=== PATIENT | male | born 1950 | race Caucasian/White ===

== ENCOUNTER 2022-07-10 08:13 | Outpatient (CLI) | payer BC, SELFPAY ==
--- NOTE | 2022-08-04 16:51 | WPDSLEEPSTUD ---
Sleep Study Date of Study: 07/10/22 Ordering Provider: Hoa Perez DO Interpreting Physician: Hoa Perez DO Sleep Study Type: Polysomnogram Height: 1.63 m Weight: 81.647 kg Body Mass Index: 30.9 Neck Circumference (inches): 15.5 [place]: 18 Reason for Sleep Study Concerns for REM Behavioral Disorder Sleep History The patient is a 72-year-old male with hypertension, restless legs syndrome, Type 2 Diabetes and dream enactment behavior that had a sleep study ordered for evaluation of REM Behavioral Disorder. the patient denies awakening from sleep short of breath. He denies awakening at night with heartburn, belching or cough. He frequently snores loudly enough that others complain. He denies having trouble sleeping when he has a cold. He denies waking up gasping for air throughout the night. He denies having breathing problems at night observed by himself or others. He rarely sweats excessively at night. He denies having heart palpitations or irregular heartbeats during the night. I he frequently falls asleep during the day but rarely falls asleep while driving. He denies sleep paralysis and cataplexy. He occasionally has trouble at school or work due to sleepiness. He frequently experiences vivid dreamlike scenes upon awakening or falling asleep. He denies feeling afraid of going to sleep. He rarely has nightmares and he rarely remembers his dreams. He denies having thoughts racing through his mind. He rarely feels sad or depressed. He denies having anxiety. He denies having muscular tension. He occasionally notices parts of his body jerk. He constantly kicks during the night. He frequently has crawling and aching feelings in his legs and frequently have leg pain during the night. He denies grinding his teeth during sleep and denies awakening with morning jaw pain. He is frequently bothered by pain during the day but rarely awakened by pain during the night. He constantly wakes up feeling stiff in the morning. He constantly wakes up with sore or achy muscles. He constantly wakes up with pain in the neck, spine and other joints. He goes to bed at 10:00 p.m. on both weekdays and weekends. He can fall asleep immediately. He wakes up once throughout the night to urinate and then will get a cup of coffee and read or watch that legs. He typically stays awake past that point. He wakes up at 3:00 a.m. on both weekdays and weekends. He typically gets 5 hours of sleep per night. He will stay in bed for 5-30 minutes after waking up in the morning. He currently lives with his . He does not consume any caffeinated beverages within 2 hours of bedtime. He does not engage in physical exercise before bedtime. He denies reading and watching television before falling asleep. He will take naps in the afternoon or the evening and they are refreshing. He consumes 1 cup of caffeinated beverage per day. He denies tobacco, alcohol and recreational drug use. [facility] Surgical History Surgical History Status post right partial knee replacement (~07/14/18) Family History Family History Sibling Patient's brother is in good health Diabetes mellitus Father Family history of cardiovascular disease Patient's father is , Onset Age: 97 Other Family history of elevated blood lipids Social History Social History Smoking status: Never smoker Alcohol intake: never Substance use: never Lack of Transportation: No Lack of Food: Never True Current Housing: I Have Housing Concerned About Future Housing: No Difficulty Paying Gas/Electric Bills: No Difficulty Paying for Meds: No Currently Unemployed: No Education: Master's Degree or Higher Difficulty w/ Childcare or Family Care: No Medications Home Medicati
[2022-08-04 19:59] VITALS: BMI 30.9
== END 2022-07-11 05:31 | disposition home or self-care (01) ==
LOC: ANHCSM 08:14
PROVIDERS: PCP Family Medicine; Visit Provider Family Medicine
DX: G47.52 REM sleep behavior disorder (principal); G47.33 Obstructive sleep apnea (adult) (pediatric); G25.81 Restless legs syndrome
CPT/HCPCS: 95810

== ENCOUNTER 2023-06-19 15:47 | Emergency (ER) | payer BC, SELFPAY ==
[2023-06-19] VITALS (7 sets, daily range): BP systolic 123–159; BP diastolic 68–84; PULSE 55–67; RESP 12–19; TEMP 36.8; O2SAT 98–100
--- NOTE | ~2023-06-19 | CT_ITS ---
EXAMINATION: CT brain wo con DATE: 06/19/2023 18:47 INDICATION: syncope . TECHNIQUE: Computed tomography (CT) of the head was performed without intravenous contrast. The mA wa s adjusted according to patient size. Iterative reconstruction technique was employed. The dose-lengt h product was 605.33 mGy-cm. COMPARISON: None. FINDINGS: No acute intracranial hemorrhage or extra-axial fluid collection. No hydrocephalus, mass, or herniation. No acute ischemic infarct. Unremarkable dural venous sinus attenuation. No acute osseous abnormality. Ethmoid and maxillary mucosal thickening, the remaining aerated spaces are clear. Moderate atrophy and mild chronic white matter change. Atherosclerotic intracranial calcification. IMPRESSION: No acute intracranial process. Reviewed, dictated and finalized at location K.
--- NOTE | ~2023-06-19 | XR_ITS ---
EXAMINATION: XR chest 2V DATE: 06/19/2023 16:37 INDICATION: Syncope. TECHNIQUE: Frontal and lateral views of the chest were obtained. COMPARISON: Chest single view 04/01/2007 FINDINGS: There is no pneumonia, pleural effusion, or pneumothorax. The heart size is normal. There a re old healed right rib fractures. There is mild chronic anterior wedging of multiple vertebral katarina s. IMPRESSION: 1. No acute cardiopulmonary disease. Reviewed, dictated and finalized at location A.
--- NOTE | 2023-06-19 15:53 | ED.SYNCOPE ---
HPI - Syncope General Chief Complaint: Syncope <Azucena Anderson PA-C - Last Filed: 06/21/23 09:13> Stated Complaint: syncope <Azucena Anderson PA-C - Last Filed: 06/21/23 09:13> Time Seen by Provider: 06/19/23 15:53 <Azucena Anderson PA-C - Last Filed: 06/21/23 09:13> Focused HPI: Patient reports he was [place] the [place] when he started to fell numb, warm and dizzy. This went away, but then about 30 minutes later he passed out in the restaurant. Reports no injuries. He laid his head on the table. No previous syncopal episodes. Reports some fatigue today. Denies chest pain, shortness of breath or palpitations. GENERAL: Well-appearing, well-nourished, and in no acute distress. HEAD: Normocephalic, atraumatic. CHEST: Clear to auscultation. ?No respiratory distress. HEART: Regular rate and rhythm.? NEURO: ?Alert and oriented x3. Patient screened in triage and initial orders placed.? ?Additional care and disposition to be based upon?diagnostic testing and treatment. <Azucena Anderson PA-C - Last Filed: 06/21/23 09:13> History of Present Illness HPI narrative: 72-year-old male presenting to the emergency department for evaluation after having a near syncopal than syncopal episodes today. Patient reports that he has been eating and drinking well with no recent illnesses coughs colds or fevers. Patient did have breakfast today and denies any alcohol consumption. Patient was golfing and while coughing he did have onset of some lightheaded and dizziness with some associated nausea. Patient states that the symptoms passed. Later while the patient was resting /[place] he did have a full syncopal episode and was unconscious for about 10 seconds. Patient did not fall out of his chair. Patient states that he did feel a little out of it after coming back but patient did ultimately drive home and then presented to the emergency department for evaluation. Patient denies any prior history of ME, denies any prior syncopal history and feels back to his baseline at time of examination. <Chema Jean MD - Last Filed: 06/19/23 22:08> Related Data Home Medications: Home Medications Medication Instructions Recorded Confirmed ascorbic acid (vitamin C) 500 mg 500 mg PO DAILY 08/05/19 03/25/23 capsule aspirin 81 mg chewable tablet 81 mg PO DAILY 02/18/22 03/25/23 vitamin B complex (B 1 tablet PO DAILY 06/04/22 03/25/23 Complex-Vitamin B12 tablet) <Azucena Anderson PA-C - Last Filed: 06/21/23 09:13> Allergies/Adverse Reactions: Allergies Allergy/AdvReac Type Severity Reaction Status Date / Time No Known Allergies Allergy Verified 06/19/23 15:48 <Azucena Anderson PA-C - Last Filed: 06/21/23 09:13> Review of Systems Review of Systems: All systems reviewed & are unremarkable except as noted in HPI and below <Chema Jean MD - Last Filed: 06/19/23 22:08> [facility] Surgical History Surgical History: Surgical History Status post right partial knee replacement (~07/14/18) <Azucena Anderson PA-C - Last Filed: 06/21/23 09:13> Family History Family History: Family History Sibling Patient's brother is in good health Diabetes mellitus Father Family history of cardiovascular disease Patient's father is , Onset Age: 97 Other Family history of elevated blood lipids <Azucena Anderson PA-C - Last Filed: 06/21/23 09:13> Social History Social History: Social History Smoking status: Never smoker Alcohol intake: never Substance use: never Do You Feel Safe in your Home?: Yes Lack of Transportation: No Lack of Food: Never True Current Housing: I Have Housing Concerned About Future Housing: No Difficulty Paying Gas/Electric Bills: No Difficulty P
--- NOTE | 2023-06-19 15:54 | ECG_ITS ---
Measurements Intervals [place] Rate: 62 P: 51 VA: 167 QRS: 5 QRSD: 101 T: 24 QT: 401 QTc: 408 Interpretive Statements SINUS RHYTHM INCOMPLETE RIGHT BUNDLE BRANCH BLOCK BORDERLINE ECG COMPARED TO ECG 07/01/2018 09:36:48 NO SIGNIFICANT CHANGES Electronically Signed On 06-19-2023 16:17:01 CDT by Kevin Guardado D.O.
[2023-06-19 16:12] LABS: Glucose Point of Care 163 mg/dl (65-105)
[2023-06-19 16:15] LABS: Basophils Percent Auto 0.4 % (0.2-1.2); Eosinophils Absolute Auto 0.1 K/mm3 (0-0.3); Eosinophils Percent Auto 0.7 % (0-4.4); Hemoglobin 13.9 g/dL (14.0-18.0); Immature Granulocyte Absolute 0.04 K/mm3 (0.00-0.031); Immature Granulocyte Percent A 0.4 % (0-0.5); Lymphocytes Absolute Auto 2.53 K/mm3 (0.9-3.2); Mean Corpuscular HGB Conc 34.8 g/dl (32-36); Mean Corpuscular Hemoglobin 31.9 pg (26-34); Mean Corpuscular Volume 91.7 fl (80-100); Mean Platelet Volume 9.8 fl (7.4-10.4); Monocytes Absolute Auto 0.6 K/mm3 (0.1-0.6); Monocytes Percent Auto 5.9 % (2.6-8.5); Neutrophils Absolute Auto 6.9 K/mm3 (1.3-6.7); Neutrophils Percent Auto 67.6 % (45.5-73.1); Platelet Count Result 126 k/mm3 (150-375); Red Blood Count 4.36 M/mm3 (4.6-6.20); Red Cell Distribution Width 12.3 % (11.5-14.5); White Blood Count 10.1 K/mm3 (4.5-10.0)
[2023-06-19 16:25] LABS: Prothrombin Time 13.6 Seconds (11.1-14.7)
[2023-06-19 16:27] LABS: Alanine Aminotransferase 35 U/L (6-50); Albumin Level 4.1 g/dL (3.5-5.1); Alkaline Phosphatase 82 U/L (38-126); Anion Gap 6 mmol/L (4-12); Aspartate Amino Transferase 35 U/L (17-59); Bilirubin,Total 0.6 mg/dL (0.2-1.3); Blood Urea Nitrogen 21 mg/dL (9-20); Calcium 9.1 mg/dL (8.4-10.2); Carbon Dioxide 25 mmol/L (22-30); Chloride 105 mmol/L (98-107); Estimated CRCL calculation 57 ml/min; Estimated Glomerular Filt Rate > 60; Glucose 155 mg/dL (65-110); Potassium 4.1 mmol/L (3.4-5.0); Sodium 136 mmol/L (137-145)
[2023-06-19 16:39] LABS: Troponin I < 0.012 ng/mL (0.000-0.034)
[2023-06-19 19:57] LABS: Troponin I < 0.012 ng/mL (0.000-0.034)
== END 2023-06-19 20:43 | disposition home or self-care (01) ==
PROVIDERS: Physician Assistant; Emergency Provider Emergency Medicine; PCP Family Medicine
DX: R55 Syncope and collapse (principal); Z96.651 Presence of right artificial knee joint; Z79.84 Long term (current) use of oral hypoglycemic drugs; Z79.82 Long term (current) use of aspirin
CPT/HCPCS: 36415; 70450; 71046; 80053; 82948; 84484; 85025; 85610; 85730; 93005; 99284

== ENCOUNTER 2024-09-12 12:28 | Outpatient (CLI) | payer BC, SELFPAY ==
--- NOTE | ~2024-09-12 | XR_ITS ---
3 VIEWS LUMBAR SPINE Ordering provider: Stanton Lilly MD History: . M54.17 - Radiculopathy, lumbosacral region . Comparison: None. FINDINGS: VERTEBRAL BODIES: No visible fracture or subluxation. Degenerative changes of the spine. DISK SPACES: Narrowing of the disc L1-L2, L2-L3, and L3-4. Multilevel facet joint disease. Bilateral hip osteoarthritic changes. SOFT TISSUES: Normal. Calcifications seen in the upper abdomen most likely medication tablets. Clinical correlation advised . IMPRESSION: No acute osseous abnormality lumbar spine. Multilevel degenerative disc disease. Reviewed, dictated and finalized at location A.
== END 2024-09-12 12:29 | disposition home or self-care (01) ==
LOC: GOSHIMG 12:28
PROVIDERS: PCP Family Medicine; Visit Provider Family Medicine
DX: M51.369 Other intervertebral disc degeneration, lumbar region without mention of lumbar back pain or lower extremity pain (principal)
CPT/HCPCS: 72110

== ENCOUNTER 2024-09-22 09:55 | Outpatient (CLI) | payer BC, SELFPAY ==
--- NOTE | ~2024-09-22 | MR_ITS ---
MRI of the lumbar spine Clinical History: Radiculopathy Technique: Axial T2-weighted images, and sagittal T1-weighted, T2-weighted, and T2 fat-sat images wer e acquired. Findings: No acute fracture seen. There is 3 mm retrolisthesis of L1 over L2. There is 3 mm retrolist hesis of L2 over L3, and of L3 over L4. No suspicious bone marrow signal abnormality seen. There are mild Modic type reactive marrow signal changes in the lumbar spine. At L1-L2, there is severe degenerative disc narrowing. There is mild disc bulge with moderate facet a rthropathy. No central canal stenosis. There is moderate left neural foraminal narrowing. Right neura l foramen preserved. At L2-L3, there is advanced degenerative disc narrowing. Disc bulge and moderate facet arthropathy re sult in moderate to severe spinal canal stenosis/thecal sac compression. There is severe bilateral ne ural foraminal narrowing. At L3-L4, there is severe degenerative disc narrowing. There is disc bulge with severe facet arthropa thy. There is moderate to severe spinal canal stenosis/thecal sac compression. There is severe right neural foraminal narrowing, and moderate to severe left neural foraminal narrowing. At L4-L5, there is diffuse disc bulge with superimposed central to right paracentral disc extrusion e xtending superiorly behind the L4 vertebral body. Severe facet arthropathy is also present. All these factors contribute to severe spinal canal stenosis/thecal sac compression. There is severe bilateral neural foraminal compromise. At L5-S1, there is minimal disc bulge with severe facet arthropathy. No central canal stenosis or bety ral foraminal narrowing. Paravertebral soft tissues are unremarkable. Impression: Central to right paracentral disc extrusion at L4-L5, extending superiorly behind the L4 vertebral jerilyn dy. Additional degenerative factors at this level considered to severe spinal canal stenosis/thecal s ac compression and severe bilateral neural foraminal compromise. Additional severe degenerative spondylosis at L2-L3 and L3-L4, as detailed above. Multiple grade 1 listheses in the lumbar spine, as above. Reviewed, dictated and finalized at location M. Impression: Central to right paracentral disc extrusion at L4-L5, extending superiorly behi nd the L4 vertebral body. Additional degenerative factors at this level conside red to severe spinal canal stenosis/thecal sac compression and severe bilateral neural foraminal compromise. Additional severe degenerative spondylosis at L2-L3 and L3-L4, as detailed abov e. Multiple grade 1 listheses in the lumbar spine, as above.
== END 2024-09-22 09:56 | disposition home or self-care (01) ==
LOC: GOSHIMG 09:56
PROVIDERS: PCP Family Medicine; Visit Provider Family Medicine
DX: M51.26 Other intervertebral disc displacement, lumbar region (principal); M47.896 Other spondylosis, lumbar region; M43.16 Spondylolisthesis, lumbar region
CPT/HCPCS: 72148

== ENCOUNTER 2025-02-23 14:44 | Emergency (ER) | payer BC, SELFPAY ==
--- NOTE | ~2025-02-23 | XR_ITS ---
EXAMINATION: XR knee RT min 4V, 02/23/2025 15:45 ANODIZER HISTORY: right knee pain- fall COMPARISON: No comparisons available. Findings: No acute fracture or malalignment. Medial knee arthroplasty appears intact. Moderate degenerative changes of the patellofemoral joint, small effusion Soft tissues unremarkable. Impression: No acute fracture or malalignment. Reviewed, dictated and finalized at location P. IZER Impression: No acute fracture or malalignment.
--- NOTE | ~2025-02-23 | XR_ITS ---
XR hip RT min 2V 02/23/2025 16:03 Indication: Right hip pain Procedure: 2 views right hip Comparison: 02/18/2022 Findings: No fracture, subluxation or dislocation. There is mild osteoarthritis of the right hip. No soft tissue abnormality. Impression: 1: No acute bone or joint abnormality. Reviewed, dictated and finalized at location I. PICKLER Impression: 1: No acute bone or joint abnormality.
--- NOTE | ~2025-02-23 | XR_ITS ---
XR lumbar spine 2-3V Indication: fall-low back pain Comparison: None Findings: The vertebral heights are intact. No fracture or subluxation. Severe loss of disc height at L1-2, L2-3, L3-4 and L4-5. Soft tissues unremarkable Impression: No acute abnormality. Reviewed, dictated and finalized at location P. 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
--- NOTE | 2025-02-23 15:08 | ED.LOWEXIN ---
HPI - Extremity Injury (Lower) General Chief Complaint: Extremity Injury, Lower Stated Complaint: R HIP/R LEG/R KNEE INJURY Time Seen by Provider: 02/23/25 15:00 Source: patient Mode of arrival: ambulatory Limitations: no limitations History of Present Illness HPI Narrative: Tyree is a 74-year-old male patient presenting to the clinic today with complaints of low back, right hip, and right knee pain x 1 day. He reports he fell down some steps going into the basement last night around 8:00 p.m.. Has a skin tear to the left forearm, bleeding is controlled. He denies hitting his head or any loss of consciousness. History spur lumbar spine surgery and right knee arthroplasty. Reports his most pain is to the posterior right hip. States when he was going down the stairs his foot got caught up in a [place] tree back and then he fell down a few steps. Has pain with ambulation/bearing weight to the right hip. Related Data Home Medications ?Medication ?Instructions ?Recorded ?Confirmed ?Last Taken ?Type ascorbic acid (vitamin C) 500 mg 500 mg PO DAILY 08/05/19 12/21/24 Unknown History capsule aspirin 81 mg chewable tablet 81 mg PO DAILY 02/18/22 12/21/24 Unknown History omega 5-ykz-yvo-fish oil 60 mg-90 1 cap PO DAILY 07/23/23 12/21/24 Unknown History mg-500 mg capsule (Fish Oil) magnesium glycinate mg PO 11/13/23 12/21/24 Unknown History melatonin 10 mg tablet 10 mg PO QHS 12/31/23 12/21/24 Unknown History ropinirole 4 mg tablet,extended mg PO 02/23/25 Unknown History release 24 hr Allergies Allergy/AdvReac Type Severity Reaction Status Date / Time No Known Allergies Allergy Verified 02/23/25 15:11 Review of Systems Review of Systems: Pertinent positives per HPI. Patient denies any fever, chills, rash, headache, visual changes, dizziness, cough, shortness of breath, chest pain, palpitations, nausea, vomiting, diarrhea, constipation, abdominal pain, or any urinary issues. [facility] Past Medical History Medical History Cataract Immunization due Surgical History Surgical History S/P lumbar microdiscectomy H/O laminectomy History of cataract surgery Status post right partial knee replacement (~07/14/18) Family History Family History Sibling Patient's brother is in good health Diabetes mellitus Father Family history of cardiovascular disease Patient's father is , Onset Age: 97 Other Family history of elevated blood lipids Social History Social History Smoking status: Never smoker Alcohol intake: never Substance use: never Lack of Transportation: No Lack of Food: Never True Current Housing: I Have Housing Concerned About Future Housing: No Difficulty Paying Gas/Electric Bills: No Difficulty Paying for Meds: No Currently Unemployed: No Education: Master's Degree or Higher Difficulty w/ Childcare or Family Care: No Comments At the time of my signature, I reviewed and agree with the nursing past medical, surgical, social, and family history. There is no relevant family history pertinent to the patient complaint. Exam Narrative: General: Well-developed, well nourished, in no apparent distress Head: Normocephalic, atraumatic. Cardio: Regular rate and rhythm, s1 and s2 normal, no murmur appreciated. Resp: Clear to auscultation bilaterally, no rhonchi, rales, wheezing or rubs. Musculoskeletal: No deformity, tender to palpation over the lumbar spine, right anterior knee,and right posterior hip, grossly normal range of motion, muscle strength strong and equal in BLE. SLT negative, patellar reflexes 2/4 bilaterally, negative foot drop, using a wheeled walker to ambulate Integumentary: [employer], warm, and dry, skin tear to the left forearm measuring 5 cm x 1.5 cm, no rashes. Course Course Level of Care: Express Care Visit Vital Signs Vital signs: Vital Signs Temperature 36.6 C 02/23/25 15:10 Pulse Rate 95 02/23/25 15:10 Respiratory Rate 18 02/23/25 15:10 Blood Pressure 112/69 02/23/25 15:10 Pulse Oximetry 100 02/23/25 15:10 Oxygen Delivery Room Air 02/23/25 15:10 Temperature 36.6 C 02/23/25 15:10 Pulse Rate 95 02/23/25 15:10 Respiratory Rate 18 02/23/25 15:10 Blood Pressure 112/69 02/23/25 15:10 Pulse Oximetry 100 02/23/25 15:10 Oxygen Delivery Room Air 02/23/25 15:10 MDM MDM Narrative Medical decision making narrative: At the time of visit patient is resting comfortably on the exam table. Patient appears to be nontoxic. complaints of low back, right hip, and right knee pain x 1 day. He reports he fell down some steps going into the basement last night around 8:00 p.m.. Has a skin tear to the left forearm, bleeding is controlled. He denies hitting his head or any loss of consciousness. History spur lumbar spine surgery and right knee arthroplasty. Reports his most pain is to the posterior right hip. States when he was going down the stairs his foot got caught up in a [place] tree back and then he fell down a few steps. Has pain with ambulation/bearing weight to the right hip. Tetanus is unknown. On exam skin tear measures 5 x 1.5 cm, bleedings controlled. Has tenderness to pain over the right posterior hip and over the right anterior knee, mild pain to the lumbar spine, grossly normal range of motion, no shortening or rotation of the right hip, using wheeled walker to ambulate. Procedures: Wound was cleansed with antiseptic wound wash and sterile saline. Skin tear is not repairable. Patted dry and antibiotic ointment and nonstick Telfa was applied secured with Coban. Diagnostics: X-ray of the lumbar spine, right hip, and right knee. All x-rays are negative for any sign of fracture or malalignment. Does have a small knee effusion. Medications: Tdap 0.5 mL IM given in the clinic today. Plan: Patient has low back pain, acute right knee pain, skin tear to the left forearm, and right posterior hip pain s/p fall. No fractures in the clinic today. Supportive measures were discussed with the patient and they voiced understanding discharge instructions and agrees to treatment plan. Return precautions reviewed Differential Diagnosis Differential Diagnosis: Differential diagnostic considerations for lower extremity injury include lumbar back vertebral fracture, lumbar strain acute internal derangement of knee, fracture of femur, fracture of hip, skin tear, laceration, Imaging Data Radiologist's impression: ITS Impressions Hip X-Ray 02/23/25 16:04 Impression: 1: No acute bone or joint abnormality. Knee X-Ray 02/23/25 16:05 Impression: No acute fracture or malalignment. Lumbar Spine X-Ray 02/23/25 16:05 Impression: No acute abnormality. Discharge Plan Discharge Clinical Impression: Acute pain of right knee, Fall (on) (from) other stairs and steps, initial encounter Low back pain Qualifiers: Chronicity: acute Back pain laterality: midline Sciatica presence: with sciatica Sciatica laterality: sciatica of right side Qualified Code(s): M54.41 - Lumbago with sciatica, right side Skin tear of forearm without complication Qualifiers: Encounter type: initial encounter Laterality: left Qualified Code(s): S51.812A - Laceration without foreign body of left forearm, initial encounter Acute hip pain Qualifiers: Laterality: right Qualified Code(s): M25.551 - Pain in right hip Patient Disposition: Home Condition: Stable Instructions: Antibiotic Form, Fall Prevention for Older Adults (ED), Acute Low Back Pain (ED), Knee Pain (ED), Skin Tear (ED), Hip Pain (ED) Additional Instructions: Take any prescription medication only as prescribed-naproxen and baclofen Be mindful of sedation precautions given to you if taking a muscle relaxer. May use heat or ice to the affected area Consider massage or chiropractor adjustment if this was discussed with provider May use blue emu, lidocaine patches, or asper cream to affected area- do not apply heat or ice directly over cream- can cause burn. Complete appropriate back/hip stretching exercises. Follow up with your PCP in 3-5 days if symptom persist. Watch for s/s of infection. Daily dressing changes- keep wound clean and dry. Patient Language: Pashto Prescriptions: New naproxen 500 mg tablet 500 mg PO BID PRN (Reason: pain) 7 Days Qty: 14 0RF baclofen 10 mg tablet 10 mg PO TID PRN (Reason: muscle spasm) 7 Days Qty: 21 0RF No Action ropinirole 4 mg tablet extended release 24 hr PO melatonin 10 mg tablet 10 mg PO QHS metformin 500 mg tablet extended release 24 hr See Rx Instructions .ROUTE .COMPLEX Qty: 360 1RF Dose Instruction: TAKE 1 TABLET BY MOUTH TWICE DAILY Rx Instructions: TAKE 2 TABLET BY MOUTH TWICE DAILY rotigotine 2 mg/24 hour patch 24 hour 1 patch transdermal DAILY Qty: 90 1RF ascorbic acid (vitamin C) 500 mg capsule 500 mg PO DAILY aspirin 81 mg tablet,chewable 81 mg PO DAILY magnesium glycinate 100 mg magnesium capsule PO omega 3-jdj-nmy-fish oil [Fish Oil] 60-90-500 mg capsule 1 cap PO DAILY fluorouracil [Efudex] 5 % cream 1 applic topical BID 14 Days Qty: 40 1RF mupirocin 2 % ointment 1 applic topical TID Qty: 15 1RF ferrous sulfate 324 mg (65 mg iron) tablet,delayed release (DR/EC) See Rx Instructions .ROUTE .COMPLEX Qty: 180 2RF Dose Instruction: TAKE 1 TABLET BY MOUTH TWICE DAILY Rx Instructions: TAKE 1 TABLET BY MOUTH TWICE DAILY trazodone 100 mg tablet 100 mg PO QHS Qty: 90 1RF lisinopril 10 mg tablet 10 mg PO DAILY Qty: 90 1RF rotigotine 3 mg/24 hour patch 24 hour 3 mg transdermal DAILY Qty: 30 5RF Follow-up/Referrals: Stanton Lilly MD [Primary Care Provider, [facility]] Time of Disposition: 16:18 Quality NIHSS Nursing Documentation ED NIHSS nursing documentation: reviewed/agree
[2025-02-23 15:10] VITALS: BP 112/69; PULSE 95; RESP 18; TEMP 36.6; O2SAT 100
[2025-02-23] MEDS: TETANUS,DIPHTHERIA,AC PERTUSSIS ADULT (0.5 ML) BOOSTRIX IM (15:30)
== END 2025-02-23 16:26 | disposition home or self-care (01) ==
PROVIDERS: Emergency Provider Nurse Practitioner Family; PCP Family Medicine
DX: M25.561 Pain in right knee (principal); M54.41 Lumbago with sciatica, right side; S51.812A Laceration without foreign body of left forearm, initial encounter; W10.9XXA Fall (on) (from) unspecified stairs and steps, initial encounter; M25.551 Pain in right hip; Z23 Encounter for immunization; Z96.651 Presence of right artificial knee joint; Z79.82 Long term (current) use of aspirin
CPT/HCPCS: 72100; 73502; 73564; 90471; 90715; 99214; G0463